=== PATIENT | male | born 1975 | race Caucasian/White ===

== ENCOUNTER 2017-09-28 20:54 | Emergency (ER) | payer MEDICAID ==
[2017-09-28 20:58] VITALS: TEMP 97.3; O2SAT 94
[2017-09-28] MEDS ORDERED: CEPHALEXIN 500MG PREPACK#4 BTL TAKEHOME ONE (21:20)
[2017-09-28] MEDS ORDERED: CEPHALEXIN 500 MG CAP PO ONE (21:20)
--- NOTE | 2017-09-28 22:01 | EDPHY ---
H & P Stated Complaint: L big toe inj HPI/ROS: Chief complaint: Left great toe injury History of present illness: This is a 42-year-old male who presents to the emergency department for left great toe injury. Patient was hiking yesterday when he tripped and struck the top of his toe against the ground. He reports immediate pain. He has remained painful since then making it difficult to ambulate. There was mild bleeding around the edges of the nail. He cleaned it with iodine. However he has developed some pain and redness onto the top of the foot. He denies other associated signs or symptoms including no report of trauma to other parts of the body, no abnormal coolness or paresthesias in the toe, no red streaking up the leg. His tetanus is up-to-date. - Personal History Current Tetanus/Diphtheria Vaccine: Yes Tetanus Vaccine Date: 03/20/2014 - Medical/Surgical History Hx Asthma: No Hx Chronic Respiratory Disease: No Hx Diabetes: No Hx Cardiac Disease: No Hx Renal Disease: No Hx Cirrhosis: No Hx Alcoholism: No Hx HIV/AIDS: No Hx Splenectomy or Spleen Trauma: No Other PMH: Left ankle surgery with MRSA infection 5 years ago. - Social History Smoking Status: Former smoker - Physical Exam Exam: General: Alert, nontoxic Skin: Dry blood around the edges of the nail without but no repairable wound. There is erythema onto the dorsum of the foot. No induration or fluctuance to suggest abscess. No red streaking to suggest lymphangitis. Musculoskeletal: Pain moving the left great toe. Moves digits 2 through 5 well with minimal discomfort. The foot and ankle are nontender. Moving the ankle without difficulty. Vascular: Capillary refill brisk in all digits of the left foot. DP and PT pulses 2+. Neurologic: Sensation appears to be intact in all aspects of the left foot. Constitutional: Initial Vital Signs Temperature (C) 36.3 C 09/28/17 20:56 Heart Rate 103 H 09/28/17 20:56 Respiratory Rate 18 09/28/17 20:56 Blood Pressure 122/77 H 09/28/17 20:56 O2 Sat (%) 94 09/28/17 20:56 Allergies/Adverse Reactions: ibuprofen [From Motrin] Allergy (Verified 09/28/17 20:59) Other-Enter Comments Home Medications: Medication Instructions Recorded Cephalexin [Keflex (*)] 500 mg PO QID 10 Days cap 09/28/17 Medical Decision Making - Diagnostics Imaging Results: Imaging Impressions Foot X-Ray 09/28/17 21:20 Impression: Acute intra-articular fracture involving the distal medial portion of the great toe proximal phalanx near the interphalangeal joint. Imaging: I viewed and interpreted images myself Procedures: Procedure: Splint placement. A postop shoe splint was applied. After application of the splint I returned and re-examined the patient. The splint was adequately immobilizing the joint and distal to the splint the patient's circulation and sensation was intact. Crutches are given to the patient ED Course/Re-evaluation: Patient seen under the supervision of my secondary supervising physician Dr. Rakesh Winston. Patient presents to the emergency department for a left great toe injury. He appears to have a fractured toe. The toe is neurovascularly intact. He appears to have developed a secondary cellulitis. He is started on Keflex. He is placed in a postop shoe and given crutches. Home care is discussed. He is to follow up with Orthopedics for recheck. Referral information is provided. Return precautions are given. Patient voiced understanding and agreement with plan. Differential Diagnosis: Included but not limited to contusion, sprain or strain, bony fracture, joint dislocation, cellulitis, abscess, lymphangitis - Data Points Medications Given: Discontinued Medications Cephalexin (Keflex 500 Mg Prepack#4) 1 btl TAKEHOME EDNOW ONE PRN Reason: Protocol Stop: 09/28/17 21:21 Last Admin: 09/28/17 21:41 Dose: 1 btl Cephalexin HCl (Keflex) 500 mg PO EDNOW ONE PRN Reason: Protocol Stop: 09/28/17 21:21 Last Admin: 09/28/17 21:40 Dose: 500 mg Departure - Departure Disposition: Home, Routine, Self-Care Clinical Impression: Cellulitis of left foot Toe fracture, left Qualifiers: Encounter type: initial encounter Toe: great toe Fracture type: open Phalanx: proximal Fracture alignment: nondisplaced Qualified Code(s): S92.415B - Nondisplaced fracture of proximal phalanx of left great toe, initial encounter for open fracture Condition: Good Instructions: Cephalexin (By mouth), Toe Fracture (ED), Cellulitis (ED) Additional Instructions: Follow-up with a primary care doctor and orthopedics for continued evaluation and care Take all antibiotics as prescribed until finished even feeling better If symptoms worsen or new symptoms develop return to the emergency room for recheck Referrals: NONE *PRIMARY CARE P,. [Primary Care Provider] - As per Instructions [facility],. [Clinic] - As per Instructions Lonnie Sandoval MD [Medical Doctor] - As per Instructions Rajesh Campos MD [Medical Doctor] - As per Instructions Prescriptions: Cephalexin [Keflex (*)] 500 mg PO QID 10 Days cap
[2017-09-28] MEDS ORDERED: HYDROCOD/APAP 5/325 PREPACK#6 BTL TAKEHOME ONE (22:21)
[2017-09-28 22:30] VITALS: BP 116/66; PULSE 16; RESP 96
== END 2017-09-28 22:30 | disposition home or self-care (01) ==
DX: S92.415B Nondisplaced fracture of proximal phalanx of left great toe, initial encounter for open fracture (principal); L03.116 Cellulitis of left lower limb; Z87.891 Personal history of nicotine dependence; W22.8XXA Striking against or struck by other objects, initial encounter; Y99.8 Other external cause status; Y93.01 Activity, walking, marching and hiking

== ENCOUNTER 2017-09-29 19:42 | Emergency (ER) | payer MEDICAID ==
[2017-09-29 19:46] VITALS: BP 127/89; PULSE 88; RESP 18; TEMP 98.6; O2SAT 95
--- NOTE | 2017-09-29 20:07 | EDPHY ---
H & P HPI/ROS: Chief complaint: Persistent left toe pain History of present illness: This is a 42-year-old male who returns to the emergency department for persistent left toe and foot pain. He was seen in the emergency department yesterday by myself. He injured his foot hiking today previously. It had persistent pain. He did cut his foot and started developed some redness to the top of the toe and foot. An x-ray was obtained. Fracture was diagnosed. He is placed in a postop shoe. Started on Keflex. He states pain persistent redness has spread a little bit beyond the demarcation lines. He has had 3 doses of Keflex since last night. He denies other associated signs or symptoms including no fevers, no red streaking up the leg, no other lesions. Smoking Status: Former smoker Physical Exam: General: Alert, nontoxic Skin: Bruising to the distal aspect of the left foot and the digits of the foot. There is erythema and mild warmth over the distal and mid portion of the dorsum of the left foot that is mildly warm to palpation. The proximal foot and ankle are not involved. No red streaking. A new demarcation line is applied. Musculoskeletal: Tenderness to palpation over the left great toe and the distal foot. Pain moving the left great toe. He can move the other digits well. No discomfort over the ankle or difficulty moving the ankle. Vascular: Capillary refill brisk in every digit left foot. DP and PT pulses 2+ . Neurologic: Sensation intact throughout the left foot. Constitutional: Initial Vital Signs Temperature (C) 37 C 09/29/17 19:43 Heart Rate 88 09/29/17 19:43 Respiratory Rate 18 09/29/17 19:43 Blood Pressure 127/89 H 09/29/17 19:43 O2 Sat (%) 95 09/29/17 19:43 O2 Delivery Mode Room Air Allergies/Adverse Reactions: No Known Allergies Allergy (Unverified 09/29/17 19:46) Home Medications: Medication Instructions Recorded Cephalexin [Keflex (*)] 500 mg PO QID 10 Days cap 09/28/17 Hydrocodone/APAP 5/325 [[place] 1 tab PO Q6H #10 tab 09/29/17 5/325 (*)] Sulfamethox/Tmp 800/160 mg 1 tab PO BID 10 Days tab 09/29/17 [Bactrim Ds] MDM/Departure - MDM Medications Given: Discontinued Medications Trimethoprim/Sulfamethoxazole (Bactrim Ds) 1 ea PO EDNOW ONE PRN Reason: Protocol Stop: 09/29/17 20:14 Last Admin: 09/29/17 20:17 Dose: 1 ea ED Course/Re-evaluation: Patient discussed with my secondary supervising physician Dr. Chas Fischer. Patient presents to the emergency department for persistent pain to his left great toe and foot after he injured it and developed a cellulitis on it. He appears to have mild extension of his cellulitis. He has not been taking Keflex as prescribed. I have encouraged him to take it every 6 hr as prescribed. In addition I will add Bactrim to treatment regimen to ensure full coverage of possible infection. He is given another course of pain medicine. Home care is discussed. He is again asked to follow up with a primary care doctor and Orthopedics for recheck. Return precautions are given. Patient voiced understanding and agreement with plan. - Depart Disposition: Home, Routine, Self-Care Clinical Impression: Cellulitis of foot Fracture, toe Qualifiers: Encounter type: initial encounter Toe: great toe Fracture type: closed Phalanx : proximal Fracture alignment: nondisplaced Laterality: left Qualified Code(s): S92.415A - Nondisplaced fracture of proximal phalanx of left great toe, initial encounter for closed fracture Condition: Good Instructions: Toe Fracture (ED) Additional Instructions: Follow-up with a primary care doctor and orthopedic doctor as discussed yesterday When he complete this round of K[place] please switch over to taking ibuprofen and Tylenol as discussed, You can take 600 mg of ibuprofen every 8 hr 1000 mg of Tylenol every 8 hr If symptoms worsen or new symptoms develop return to the emergency room for recheck Prescriptions: Hydrocodone/APAP 5/325 [[place] 5/325 (*)] 1 tab PO Q6H #10 tab Sulfamethox/Tmp 800/160 mg [Bactrim Ds] 1 tab PO BID 10 Days tab Referrals: NONE *PRIMARY CARE P,. [Primary Care Provider] - As per Instructions [facility],. [Clinic] - As per Instructions Rajesh Campos MD [Medical Doctor] - As per Instructions
[2017-09-29] MEDS ORDERED: SULFAMET/TMP DS PREPACK#2 BTL TAKEHOME ONE (20:13)
[2017-09-29] MEDS ORDERED: SULFAMETHOX/TMP 800/160 MG 1 TAB PO ONE (20:13)
== END 2017-09-29 20:21 | disposition home or self-care (01) ==
DX: S92.415D Nondisplaced fracture of proximal phalanx of left great toe, subsequent encounter for fracture with routine healing (principal); L03.116 Cellulitis of left lower limb; Z87.891 Personal history of nicotine dependence; X58.XXXD Exposure to other specified factors, subsequent encounter

== ENCOUNTER 2017-12-22 12:13 | Emergency (ER) | payer MEDICAID ==
--- NOTE | 2017-12-22 12:24 | EDPHY ---
H & P Time Seen by Provider: 12/22/17 12:19 HPI/ROS: CHIEF COMPLAINT: Left ankle pain, left rib pain HISTORY OF PRESENT ILLNESS: The patient is a 42-year-old male who presents to the emergency department in custody by PD. The patient has a warrant out for his arrest. He attempted to run from the police and was detained. Once placed in the police car he kicked out the window. He then dove out the window. He now complains of left ankle pain. His pain is moderate. Has no numbness or tingling. Patient denies loss of conscious or headache. He has mild left shoulder discomfort. He also has "left rib pain". No shortness of breath. REVIEW OF SYSTEMS: My complete review of systems is negative except as mentioned in the HPI. Past Medical/Surgical History: Includes concussion, rib injury, left ankle surgery Social history: The patient denies drug use Smoking Status: Former smoker Physical Exam: Vitals noted GENERAL: No acute distress, alert. C-collar in place. HEAD: No evidence of trauma. Patient has an abrasion on his left cheek. There is no bony tenderness palpation. No deformity. EYES: PERRLA, EOMI, normal to inspection. ENT: Airway intact, no dental or oral injury, no malocclusion. NECK: The trachea is midline. There is no crepitus. The C-spine is nontender. NEXUS criteria is negative (no midline tenderness, no distracting injury, no altered mental status, no recent alcohol use, no focal neurologic deficit). RESPIRATORY: Clear to auscultation bilaterally, no rales, rhonchi or wheezing. There is no crepitus or palpable rib fractures. CVS: Regular rate and rhythm, no rubs, murmurs, or gallops. ABDOMEN: Soft, nontender, nondistended, normal bowel sounds, no bruising or abrasions. Pelvis: Stable. No tenderness palpation. Hips full range of motion. BACK: Normal to inspection, no spinal tenderness, no spinal step off, no notable bruising or abrasions. SKIN: Normal color, warm, dry. No pallor or diaphoresis. EXTREMITIES: Right upper extremity: Atraumatic. No visible signs of trauma. No tenderness palpation. Neurovascular intact distally. Left upper extremity: Atraumatic. No visible signs of trauma. No tenderness palpation. Neurovascular intact distally. Normal. Right lower extremity: Atraumatic. No visible signs of trauma. No tenderness palpation. Neurovascular intact distally. Left lower extremity: Atraumatic. No visible signs of trauma. Mild anterior ankle tenderness to palpation. Neurovascular intact distally. NEURO/PSYCH: Alert and oriented x 3, GCS 15, normal mood and affect, normal motor sensory exam. Constitutional: Initial Vital Signs Heart Rate 113 H 12/22/17 12:29 Respiratory Rate 18 12/22/17 12:29 O2 Sat (%) 96 12/22/17 12:29 O2 Delivery Mode Room Air Allergies/Adverse Reactions: No Known Allergies Allergy (Unverified 09/29/17 19:46) Home Medications: Medication Instructions Recorded Cephalexin [Keflex (*)] 500 mg PO QID 10 Days cap 09/28/17 Hydrocodone/APAP 5/325 [[place] 1 tab PO Q6H #10 tab 09/29/17 5/325 (*)] Sulfamethox/Tmp 800/160 mg 1 tab PO BID 10 Days tab 09/29/17 [Bactrim Ds] Medical Decision Making - Diagnostics Imaging Results: Imaging Impressions Ankle X-Ray 12/22/17 12:18 Impression: 1. Old healed fractures of the distal tibia and fibula with prior remote orthopedic instrumentation of the fibular diaphysis, with no secondary evidence of orthopedic hardware. 2. No acute osseous abnormality identified. ED Course/Re-evaluation: In the emergency department I discussed possible etiologies with the patient. I answered all his questions. X-ray of his left ankle was ordered. Left ankle x-ray: Please refer the dictated report. No acute disease noted. I discussed results with the patient. I answered all his questions. He is given warnings prior to leaving. A Velcro ankle splint was placed. Differential Diagnosis: Patient presents emergency department multiple complaints. He was running from the police and apprehended. He then kicked out the window for please car. He had no findings of fracture on his ankle x-ray. He complained of left rib discomfort. However, on his exam he had no tenderness to palpation or palpable abnormality. No crepitus. I doubt significant pneumothorax or hemothorax. He had clear breath sounds bilaterally with normal saturation. Patient had no spinal tenderness. Nexus criteria were negative. The patient complained of mild left shoulder discomfort. However on exam he had no tenderness to palpation. There is no bony deformity. Departure - Departure Disposition: Home, Routine, Self-Care Clinical Impression: Contusion of left shoulder Qualifiers: Encounter type: initial encounter Qualified Code(s): S40.012A - Contusion of left shoulder, initial encounter Left ankle sprain Qualifiers: Encounter type: initial encounter Involved ligament of ankle: other ligament Qualified Code(s): S93.492A - Sprain of other ligament of left ankle, initial encounter Contusion of rib on left side Qualifiers: Encounter type: initial encounter Qualified Code(s): S20.212A - Contusion of left front wall of thorax, initial encounter Condition: Good Instructions: Ankle Sprain (ED), Contusion in Adults (ED)
[2017-12-22 12:33] VITALS: PULSE 113; RESP 18; O2SAT 96
== END 2017-12-22 13:00 | disposition home or self-care (01) ==
LOC: EDUNIT#
DX: S40.012A Contusion of left shoulder, initial encounter (principal); S93.492A Sprain of other ligament of left ankle, initial encounter; S20.212A Contusion of left front wall of thorax, initial encounter; Z87.891 Personal history of nicotine dependence; W22.8XXA Striking against or struck by other objects, initial encounter; Y93.02 Activity, running
CPT/HCPCS: L4350